=== PATIENT | male | born 1935 | race Caucasian/White ===

== ENCOUNTER 2017-03-28 15:51 | Emergency (ER) | payer MEDICARE ==
--- NOTE | 2017-03-28 16:12 | Emergency Department Record ---
History of Present Illness - General Chief Complaint: Dizziness Stated Complaint: dizziness Time Seen by Provider: 03/28/17 16:06 Source: Patient, RN notes reviewed Mode of Arrival: Wheelchair - History of Present Illness Initial Comments: dizziness yesterday and today and unable to walk today but he drove her today and his pulse 20 in the lobby. Brought to ED . 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 No chest pain MD Complaint: Dizziness Onset/Timin -: Days(s) Timing: Unsure Description: Difficulty walking, Lightheadedness History of Same: No Worsens With: Movement, Position - [place] Coma Scale Eye Response: (4) Open spontaneously Motor Response: (6) Obeys commands Verbal Response: (5) Oriented Jade Total: 15 - Symptoms of Stroke Symptoms of stroke: Dizziness - Related Data Home Medications Medication Instructions Recorded Confirmed Last Taken Acetaminophen 500 mg PO BID PRN 03/28/17 03/28/17 1 Day Ago ~03/27/17 Amlodipine Besylate [Norvasc] 10 mg PO DAILY 03/28/17 03/28/17 1 Day Ago ~03/27/17 Aspirin [Aspirin EC] 81 mg PO DAILY 03/28/17 03/28/17 1 Day Ago ~03/27/17 Atenolol 100 mg PO DAILY 03/28/17 03/28/17 1 Day Ago ~03/27/17 Chlorthalidone 25 mg PO DAILY 03/28/17 03/28/17 1 Day Ago ~03/27/17 Cholecalciferol (Vitamin D3) 2,000 unit PO DAILY 03/28/17 03/28/17 1 Day Ago [Vitamin D3] ~03/27/17 Cyanocobalamin (Vitamin B-12) 1,000 mcg PO DAILY 03/28/17 03/28/17 1 Day Ago [Vitamin B-12] ~03/27/17 Insulin Glargine,Hum.rec.anlog 26 unit SQ DAILY 03/28/17 03/28/17 1 Day Ago [Lantus] ~03/27/17 Lisinopril 20 mg PO DAILY 03/28/17 03/28/17 1 Day Ago ~03/27/17 Loratadine 10 mg PO DAILY 03/28/17 03/28/17 1 Day Ago ~03/27/17 Metformin HCl 1,000 mg PO BID 03/28/17 03/28/17 1 Day Ago ~03/27/17 Simvastatin 40 mg PO DAILY 03/28/17 03/28/17 1 Day Ago ~03/27/17 Tamsulosin HCl [Flomax] 0.4 mg PO DAILY 03/28/17 03/28/17 1 Day Ago ~03/27/17 Vit A/C/E AC/Znox/Cupric Oxide 1 each PO BID 03/28/17 03/28/17 1 Day Ago [Eye Vitamin-Minerals Tablet] ~03/27/17 Allergies Allergy/AdvReac Type Severity Reaction Status Date / Time terazosin Allergy DIZZINESS Verified 03/28/17 16:01 Travel Screening - Travel/Exposure Within Last 30 Days Have you traveled within the last 30 days?: No - Travel/Exposure Within Last Year Have you traveled outside the [place] in the last year?: No - Additonal Travel Details Have you been exposed to anyone with a communicable illness?: No - Travel Symptoms Symptom Screening: None Review of Systems Reviewed: No additional complaints except as noted below Constitutional: Reports: As per HPI. Denies: Chills, Fever, Malaise, Night sweats, Weakness, Weight change Eyes: Reports: As per HPI. Denies: Eye discharge, Eye pain, Photophobia, Vision change ENT: Reports: As per HPI. Denies: Congestion, Dental pain, Ear pain, Epistaxis , Hearing loss, Throat pain Respiratory: Reports: As per HPI. Denies: Cough, Dyspnea, Hemoptysis, Stridor, Wheezes Cardiovascular: Reports: As per HPI, Arrhythmia, Other (bradycardia). Denies: Chest pain, Dyspnea on exertion, Edema, Murmurs, Orthopnea, Palpitations, Paroxysmal nocturnal dyspnea, Rheumatic Fever, Syncope Endocrine: Reports: As per HPI. Denies: Fatigue, Heat or cold intolerance, Polydipsia, Polyuria Gastrointestinal: Reports: As per HPI. Denies: Abdominal pain, Constipation, Diarrhea, Hematemesis, Hematochezia, Melena, Nausea, Vomiting Genitourinary: Reports: As per HPI. Denies: Dysuria, Frequency, Hematuria, Incontinence, Retention, Testicular pain, Testicular mass, Urgency Musculoskeletal: Reports: As per HPI. Denies: Arthralgia, Back pain, Gout, Joint swelling, Myalgia, Neck pain Skin: Reports: As per HPI. Denies: Bruising, Change in color, Change in hair/ nails, Lesions, Pruritus, Rash Neurological: Reports: As per HPI. Denies: Abnormal gait, Confusion, Headache, Numbness, Paresthesias, Seizure, Tingling, Tremors, Vertigo, Weakness Psychiatric: Reports: As per HPI. Denies: Anxiety, Auditory hallucinations, Depression, Homicidal thoughts, Suicidal thoughts, Visual hallucinations Hematological/Lymphatic: Reports: As per HPI. Denies: Anemia, Blood Clots, Easy bleeding, Easy bruising, Swollen glands Past Medical History - SOCIAL HISTORY Smoking Status: Never smoker Alcohol Use: None Drug Use: None - RESPIRATORY Hx Respiratory Disorders: No - CARDIOVASCULAR Hx Hypertension: Yes - NEURO Hx Neuro Disorders: No - GI Hx GI Disorders: No - Hx Genitourinary Disorders: No - ENDOCRINE Hx Diabetes: Yes Hx Thyroid Disease: No - MUSCULOSKELETAL Hx Musculoskeletal Disorders: No - PSYCH Hx Psych Problems: No - HEMATOLOGY/ONCOLOGY Hx Hematology/Oncology Disorders: No Family Medical History Any Significant Family History?: Yes Physical Exam - General General Appearance: Alert, Oriented x3, Cooperative, No acute distress - Head Head exam: Normal inspection - Eye Eye exam: Normal appearance, PERRL Pupils: Normal accommodation - ENT ENT exam: Normal exam, Mucous membranes moist, Normal external ear exam, Normal orophraynx, TM's normal bilaterally Ear exam: Normal external inspection. negative: External canal tenderness Nasal Exam: Normal inspection. negative: Discharge, Sinus tenderness Mouth exam: Normal external inspection, Tongue normal Teeth exam: Normal inspection. negative: Dental caries Throat exam: Normal inspection. negative: Tonsillar erythema, Tonsillar exudate - Neck Neck exam: Normal inspection, Full ROM. negative: Tenderness - Respiratory Respiratory exam: Normal lung sounds bilaterally. negative: Respiratory distress - Cardiovascular Cardiovascular Exam: Normal heart sounds, Bradycardia - GI/Abdominal GI/Abdominal exam: Soft, Normal bowel sounds. negative: Tenderness - Rectal Rectal exam: Deferred - exam: Deferred - Extremities Extremities exam: Normal inspection, Full ROM, Normal capillary refill. negative: Tenderness - Back Back exam: Reports: Normal inspection, Full ROM. Denies: Muscle spasm, Rash noted, Tenderness - Neurological Neurological exam: Alert, Normal gait, Oriented X3, Reflexes normal - Psychiatric Psychiatric exam: Normal affect, Normal mood - Skin Skin exam: Dry, Intact, Normal color, Warm Course Vital Signs 03/28/17 15:53 Temperature 97.8 F Pulse Rate 35 L Respiratory 24 Rate Blood Pressure 103/85 Pulse Ox 94 L - Reevaluation(s) Reevaluation #1: discussed case with Dr. Jameson and will transfer to [facility] 03/28/17 16:28 Medical Decision Making - Lab Data Result diagrams: 03/28/17 16:05 03/28/17 16:05 Disposition Clinical Impression: Complete heart block, MORGAN (obstructive sleep apnea), Obesity, morbid Hypertension Qualifiers: Hypertension type: essential hypertension Qualified Code(s): I10 - Essential ( primary) hypertension Diabetes Qualifiers: Diabetes mellitus type: type 2 Diabetes mellitus complication status: without complication Diabetes mellitus continuous churn buttermaker insulin use: with nursing home use Qualified Code(s): E11.9 - Type 2 diabetes mellitus without complications Disposition: Acute Care Hospital Transfer Condition: (2) Stable Forms: Patient Portal Access Time of Disposition: 16:31 Quality - Quality Measures Quality Measures: N/A - Blood Pressure Screening Does Patient Have Any of the Following: Active Dx of HTN Blood Pressure Classification: Pre-Hypertensive BP Reading Systolic Measurement: 103 Diastolic Measurement: 85 Screening for High Blood Pressure: Patient Exclusion, Hx of HTN [[id number]]
[2017-03-28] MEDS ORDERED: ASPIRIN 81 MG CHEWABLE TABLET PO ONE (16:15)
[2017-03-28] MEDS ORDERED: 0.9 % SODIUM CHLORIDE 1000ML 1,000 ML IV PRN (16:15)
[2017-03-28 16:23] LABS: BASO % 0.3 % (0-6); EOS % 1.3 % (0-6); GRAN % 72.7 % (47-80); HEMATOCRIT 41.5 % (42.0-52.0); HEMOGLOBIN 13.6 gm/dl (14.0-18.0); LYMPH % 15.4 % (16-45); MEAN CELL VOLUME 88.3 fl (81-97); MEAN CORPUSCULAR HEMOGLOBIN 28.9 pg (27-33); MEAN CORPUSCULAR HGB CONC 32.8 g/dl (32-36); MEAN PLATELET VOLUME 9.7 fl (7.4-10.4); MONO % 10.3 % (0-9); PLATELET COUNT 219 K/uL (130-400); RED CELL DISTRIBUTION WIDTH 13.8 % (11.5-14.5)
[2017-03-28 16:36] LABS: ANION GAP 14.8 (7-16); CARBON DIOXIDE 24.2 mmol/L (22-30); CREATININE 1.8 mg/dL (0.66-1.25)
[2017-03-28 16:37] LABS: INR 1.07; PARTIAL THROMBOPLASTIN TIME 30.7 SECONDS (24.5-39.1); PROTHROMBIN TIME (PATIENT) 11.6 SECONDS (9.5-12.1)
[2017-03-28 16:44] LABS: CKMB 1.5 ug/L (0-6)
[2017-03-28 17:06] LABS: THYROID STIMULATING HORMONE 1.12 uIU/ml (0.465-4.68)
--- NOTE | 2017-03-31 09:30 | RADIOLOGY REPORT ---
EXAM: CHEST HISTORY: DIZZINESS, LIGHTHEADEDNESS. TECHNIQUE: A single view of the chest was obtained. Comparison: None. FINDINGS: The heart is not enlarged. There is no focal area of lung consolidation. No mediastinal mass. Borderline vascular congestion. IMPRESSION: BORDERLINE VASCULAR CONGESTION, OTHERWISE UNREMARKABLE CHEST. JOB NUMBER: [id number]
== END 2017-03-28 17:19 | disposition short-term general hospital (02) ==
LOC: ER 15:51
DX: I44.2 Atrioventricular block, complete (principal); G47.33 Obstructive sleep apnea (adult) (pediatric); E66.01 Morbid (severe) obesity due to excess calories; R42 Dizziness and giddiness; R26.2 Difficulty in walking, not elsewhere classified; I10 Essential (primary) hypertension; E11.9 Type 2 diabetes mellitus without complications; Z79.4 Long term (current) use of insulin
CPT/HCPCS: 71010; 80048; 82550; 82553; 83735; 84443; 85025; 85610; 85730; 93005; 93010; 99285